=== PATIENT | male | born 1975 | race Caucasian/White ===

== ENCOUNTER 2016-09-06 17:21 | Emergency (ER) | payer BC, OTHER ==
[~2016-09-06] VITALS: Ht 188 cm; Wt 109.5 kg
[~2016-09-06 17:21] MED LIST: TYLENOL
[2016-09-06 17:24] VITALS: TEMP 36.6; Ht 188 cm; Wt 109.5 kg
[2016-09-06 17:28] VITALS: O2SAT 98
[2016-09-06] MEDS ORDERED: OMEP20TA PO (18:20)
[2016-09-06] MEDS ORDERED: MULT-506 PO (18:20)
--- NOTE | 2016-09-06 18:56 | DIAGNOSTIC IMAGING REPORT ---
RIGHT ELBOW MIN 3 VIEWS ROUTINE CLINICAL HISTORY: Right elbow pain following injury. COMPARISON: None FINDINGS: Alignment of the right elbow is anatomic. There is no acute fracture. No joint effusion is present. There may be mild soft tissue swelling overlying the olecranon. IMPRESSION: No acute fracture or joint effusion of the right elbow. Electronically signed by: Robbin Short M.D. 09/06/2016 6:55 PM Dictated Date/Time: 09/06/2016 6:54 PM
[2016-09-06] MEDS ORDERED: HYDR-5688 PO (19:22)
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
[2016-09-06 19:37] VITALS: BP 135/79; PULSE 72; O2SAT 99
== END 2016-09-06 19:38 | disposition home or self-care (01) ==
LOC: C.EDB 17:22 → C.EDD 19:38
DX: S59.901A Unspecified injury of right elbow, initial encounter (principal); Z79.899 Other long term (current) drug therapy; Z87.891 Personal history of nicotine dependence; V03.10XA Pedestrian on foot injured in collision with car, pick-up truck or van in traffic accident, initial encounter; Y92.488 Other paved roadways as the place of occurrence of the external cause; Y99.8 Other external cause status